=== PATIENT | female | born 1985 | race Caucasian/White ===

== ENCOUNTER 2020-07-19 16:53 | Emergency (ER) | payer OTHER ==
[~2020-07-19] VITALS: Ht 160 cm; Wt 97.5 kg
[2020-07-19] MEDS ORDERED: CELEXA 20 MG TA20 MG PO (17:03)
[2020-07-19] MEDS ORDERED: PROAIR HFA8.5 GM INH (17:04)
[2020-07-19] MEDS ORDERED: IMITREX100 MG PO (17:04)
[2020-07-19] MEDS ORDERED: DESYREL150 MG PO (17:04)
[2020-07-19] MEDS ORDERED: PROTOPIC OINTME30 GM (17:05)
[2020-07-19 17:50] LABS: ABSOLUTE EOSINOPHILS 0.1 thou/uL (0.0-0.7); ABSOLUTE LYMPHOCYTES 1.9 thou/uL (0.8-5.3); ABSOLUTE MONOCYTES 0.8 thou/uL (0.0-1.2); ABSOLUTE NEUTROPHILS 4.7 thou/uL (1.6-8.1); BASOPHILS 0.7 %; EOSINOPHILS 0.8 %; HEMATOCRIT 40.4 % (37.0-47.0); LYMPHOCYTES 25.5 %; MCH 31.4 pg (26.0-34.0); MCHC 34.7 g/dL (28.0-37.0); MCV 90.3 fL (80.0-100.0); MONOCYTES 10.6 %; MPV 8.4 fl. (7.2-11.1); NUCLEATED RBCS 0 /100WBC; PLATELET COUNT* 282 thou/uL (150-400); POLYS 62.4 %; RBC 4.47 mil/uL (4.20-5.00); RDW-CV 12.7 % (10.5-14.5); URINE BILIRUBIN NEGATIVE (Negative); URINE BLOOD NEGATIVE (Negative); URINE CLARITY CLEAR; URINE COLOR YELLOW; URINE GLUCOSE-RANDOM NEGATIVE (Negative); URINE KETONES NEGATIVE (Negative); URINE LEUKOCYTES-REFLEX TRACE (Negative); URINE NITRITE-REFLEX NEGATIVE (Negative); URINE PROTEIN NEGATIVE (Negative); URINE SPECIFIC GRAVITY 1.015 (1.005-1.030); URINE UROBILINOGEN 0.2 E.U./dl (0.2-1.0); WBC 7.5 thou/uL (4.0-11.0)
[2020-07-19 17:55] LABS: CASTS None Seen /LPF (None Seen); CRYSTALS None Seen /LPF (None Seen); MUCUS None Seen strn/LPF (None Seen); SQUAMOUS >10 Many /LPF (0-3)
[2020-07-19 17:56] LABS: URINE RBC None Seen /HPF (0-2); URINE WBC-REFLEX 0-5 Rare /HPF (0-5)
[2020-07-19 18:00] LABS: CALCIUM 9.3 mg/dL (8.5-10.1); CREATININE 0.9 mg/dL (0.6-1.3); POTASSIUM 3.8 mmol/L (3.5-5.1)
[2020-07-19 18:05] LABS: MAGNESIUM 2.1 mg/dL (1.8-2.4); TOTAL BILIRUBIN 0.2 mg/dL (<0.1-1.0); TOTAL PROTEIN 7.7 g/dL (6.4-8.2)
[2020-07-19] MEDS ORDERED: TRANSDERM-SCOP1 EACH TOP (19:05)
[2020-07-19] MEDS ORDERED: PREDNISONE 10 M10 MG PO (19:05)
[2020-07-19] MEDS ORDERED: MECLIZINE HCL25 M1 PO (19:05)
[2020-07-19] MEDS ORDERED: AMOXICILLIN 50500 MG PO (19:05)
[2020-07-19 19:20] VITALS: BP 122/90
--- NOTE | 2020-07-20 09:05 | EKG ---
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 : 1985 Requested By: Sasha Paul Order Number: [id number] MD: Kenny Craft Measurements Intervals [place] Rate: 81 P: 31 IA: 126 QRS: 16 QRSD: 97 T: 6 QT: 382 QTc: 444 Interpretive Statements Sinus rhythm Borderline T wave abnormalities No previous ECG available for comparison Electronically Signed On 07-20-2020 9:05:12 ECOLOGICAL ECONOMIST by Kenny Craft [email or web address] <ELECTRONICALLY SIGNED> By: Kenny Craft MD, [facility] 07/20/20 09 172 23 Kenny Craft MD, FAC /EPI
== END 2020-07-19 19:20 | disposition home or self-care (01) ==
LOC: M.ERS 16:53
PROVIDERS: Physician Assistant
DX: I10 Essential (primary) hypertension (principal); Z20.828 Contact with and (suspected) exposure to other viral communicable diseases; H65.92 Unspecified nonsuppurative otitis media, left ear; G43.909 Migraine, unspecified, not intractable, without status migrainosus; K58.9 Irritable bowel syndrome, unspecified